=== PATIENT | male | born 1955 ===

== ENCOUNTER 2023-06-12 15:18 | Emergency (ER) | payer SELFPAY ==
[~2023-06-12] VITALS: Ht 165.1 cm; Wt 61.0 kg
[2023-06-12 15:40] VITALS: BP 163/95
[2023-06-12] MEDS ORDERED: LOSARTAN POTASS50 MG PO (15:52)
[2023-06-12 16:00] VITALS: BP 140/80
[2023-06-12 16:30] VITALS: BP 149/84
[2023-06-12 16:31] VITALS: BP 149/84
== END 2023-06-12 16:35 | disposition home or self-care (01) | DRG 556 ==
LOC: ED 15:18
DX: M79.18 Myalgia, other site (principal)